=== PATIENT | female | born 1945 | race Caucasian/White ===

== ENCOUNTER → 2016-10-26 | Outpatient (CLI) | payer OTHER ==
[~2016-10-26] MED LIST: FSMUNK; LAMO150T32 PO
--- NOTE | 2016-10-26 15:30 | MAMMOGRAPHY REPORT ---
BILATERAL DIGITAL SCREENING MAMMOGRAM TOMOSYNTHESIS WITH CAD: 10/26/2016 CLINICAL HISTORY: Routine screening. TECHNIQUE: Breast tomosynthesis in addition to standard 2D mammography was performed. Current study was also evaluated with a Computer Aided Detection (CAD) system. COMPARISON: Comparison is made to exams dated: 10/07/2015 mammogram, 10/05/2014 mammogram, 08/26/2013 ma mmogram, 08/21/2012 mammogram, 08/21/2011 mammogram, and 08/15/2010 mammogram - [facility] nter. BREAST COMPOSITION: The tissue of both breasts is heterogeneously dense, which may obscure small mas ses. FINDINGS: There are diffuse scattered and grouped benign-appearing punctate microcalcifications. Dec reasing nodularity bilaterally, most likely representing fluctuating cysts. No suspicious spiculated or irregular mass, architectural distortion or cluster of new, suspicious microcalcifications is see n. IMPRESSION: ACR BI-RADS CATEGORY 1: NEGATIVE There is no mammographic evidence of malignancy. A 1 year screening mammogram is recommended. The pa tient will receive written notification of the results. Approximately 10% of breast cancers are not detected with mammography. A negative mammographic report should not delay biopsy if a clinically suggestive mass is present. Samaria Helton M.D. ay/:10/26/2016 15:18:59 Painter [employer]: Joe NORRIS(Anny)(M), [facility] letter sent: Normal 1/2 BI-RADS Code: ACR BI-RADS Category 1: Negative
== END | disposition home or self-care (01) ==
LOC: C.MAMM 13:55
PROVIDERS: ATTEND Obstetrics & Gynecology
DX: Z12.31 Encounter for screening mammogram for malignant neoplasm of breast (principal)

== ENCOUNTER → 2017-10-29 | Outpatient (CLI) | payer OTHER ==
[~2017-10-29] MED LIST changes: +LAMO150T PO; -LAMO150T32 PO
--- NOTE | 2017-10-31 07:55 | MAMMOGRAPHY REPORT ---
BILATERAL DIGITAL SCREENING MAMMOGRAM TOMOSYNTHESIS WITH CAD: 10/29/2017 CLINICAL HISTORY: Routine screening. Patient has no complaints. TECHNIQUE: The study was acquired using full field digital technology and interpreted from soft copy. Breast tomosynthesis in addition to standard 2D mammography was performed. Current study was also ev aluated with a Computer Aided Detection (CAD) system. COMPARISON: Comparison is made to exams dated: 10/26/2016 mammogram, 10/07/2015 mammogram, 10/05/2014 ma mmogram, 08/26/2013 mammogram, 08/21/2012 mammogram, and 08/21/2011 mammogram - [facility] nter. BREAST COMPOSITION: The tissue of both breasts is heterogeneously dense, which may obscure small mass es. FINDINGS: There are diffuse scattered and grouped benign-appearing punctate microcalcifications and a few benign rim calcifications in the breasts. Stable intramammary lymph node in the right upper out er quadrant posteriorly. No suspicious mass, architectural distortion or cluster of microcalcificatio ns is seen. IMPRESSION: ACR BI-RADS CATEGORY 1: NEGATIVE There is no mammographic evidence of malignancy. A 1 year screening mammogram is recommended.( 019) The patient will receive written notification of the results. Some breast cancers are not detected with mammography. A negative mammographic report should not deejay y biopsy if a clinically suggestive mass is present. Samaria Helton M.D. ay/:10/29/2017 20:48:42 Nuclear Medicine Specialist: RT Kb(Anny)(M), [facility] letter sent: Normal 1/2 BI-RADS Code: ACR BI-RADS Category 1: Negative
== END | disposition home or self-care (01) ==
LOC: C.MAMM 09:40
PROVIDERS: ATTEND Family Medicine
DX: Z12.31 Encounter for screening mammogram for malignant neoplasm of breast (principal)

== ENCOUNTER 2021-06-19 10:28 | Inpatient (IN) ==
[2021-06-19] MEDS ORDERED: METOPROLOL TARTRATE 50 MG TAB PO STA (11:13)
[2021-06-19] MEDS ORDERED: SODIUM CHLORIDE 0.9% 1000ML 500 ML IV ONE (11:13)
[2021-06-19] MEDS ORDERED: METOPROLOL TARTRATE 1 MG/ML VIAL IV STA (11:13)
--- NOTE | 2021-06-19 11:21 | Emergency Department Note ---
Impression & Plan SOB (shortness of breath), Atrial flutter with rapid ventricular response, Palpitations, CHF (congestive heart failure) ED Provider Note NAME: DARON CAMPOS AGE: 76 SEX: F : 1945 ARRIVES VIA: Walk-In INFORMANT: [Patient] ED PROVIDER(S): [Adalid Cornell MD] CHIEF COMPLAINT: Illness HISTORY OF PRESENT ILLNESS: The patient is a 76-year-old female presents to the ED with some shortness of breath and what she thought may be some nasal congestion. She has noticed symptoms for about a week. No cough. No fever, nausea, vomiting, chest or abdominal pain. She has no diagnosed heart or lung disease. Patient went to [facility] today and was referred to the ER as she was tachycardic. Of note, the patient has been vaccinated for COVID-19 and influenza. REVIEW OF SYSTEMS: See HPI for pertinent positives and negatives. A total of ten systems were reviewed and were otherwise negative. PMHx/PSHx: See Below SOCIAL HISTORY: See Below. PHYSICAL EXAM: GENERAL: Patient is in no acute distress. HEENT: No acute trauma, normocephalic atraumatic, mucous membranes moist, no nasal congestion, no scleral icterus. NECK: No stridor, no adenopathy, no meningismus, trachea is midline. LUNGS: Clear to auscultation bilaterally, no wheeze, no rhonchi, breath sounds equal. HEART: Subtle systolic murmur, irregular rhythm, mildly tachycardic. ABDOMEN: Soft, nontender, bowel sounds positive, no hernias, no peritonitis. EXTREMITIES: No cyanosis or edema, full range of motion of all the joints without pain or difficulty, no signs for acute trauma. NEUROLOGIC: Oriented x 3, no acute motor or sensory deficits, no focal weakness. SKIN: No rash, no jaundice, no diaphoresis. DIFFERENTIAL DIAGNOSIS: Infection, dehydration, metabolic abnormality, hypo/hyperglycemia, electrolyte disturbance, anemia, SVT, A. fib or A flutter, V. tach, hyperthyroidism, hypoxia, cardiac sources, as well as other pathologies. EMERGENCY DEPARTMENT COURSE/PROCEDURES: ECG: Indication was shortness of breath and tachycardia. The ECG shows atrial flutter with a variable AV block. The rate is 106. There is some nonspecific ST change noted diffusely. No ST elevation. No PVCs. The QTc is 470 Continuous Cardiac Monitoring: An order was placed for continuous cardiac monitoring. The monitor shows a rate of 118 with atrial flutter. Critical Care Note: I have personally spent 42 minutes of critical care time in the direct management of this patient. This includes bedside care, interpretation of diagnostic studies, and testing, discussion with consultants, patient, and family members, and other required patient management activities. This 42 minutes is in excess of all separately billable procedures. MEDICAL DECISION MAKING: There is no leukocytosis or concerning anemia. There is a normal platelet count. No significant electrolyte abnormality or kidney failure. No concerning liver enzyme elevation. The patient appeared to be in a euthyroid state. ECG shows atrial flutter with a variable AV block. No obvious acute ischemia. Cardiac enzyme testing x1 was not consistent with acute cardiac injury. Chest x-ray shows some CHF. BNP was elevated consistent with fluid overload. Urinalysis did not show infection. Covid testing returned negative. The patient presents with some palpitations and shortness of breath. She was found to be in a rapid atrial flutter with CHF. 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 She was given a 500 cc saline bolus. She received IV Lopressor as well as oral metoprolol. The patient is in need of a hospital stay. I spoke with her about her findings. I spoke with case management, the on-call hospitalist was consulted. The Lopressor that was given in the ED has slowed her heart rate. Past Med/Surg History Medical History History of seizures Surgical History History of tonsillectomy and adenoidectomy Family History Mother Multiple myeloma Father Kidney disease Social History Smoking Status: Former smoker Cigarettes Per Day: 2 per day; Do You Dip or Chew Tobacco: No; Hx Alcohol Use: Yes Alcohol Intake Frequency: 2-4 x/Month Hx Substance Use: No Preferred Language: Kinyarwanda Communication Ability: Effective Cable Testers Helper Required: No Beliefs That Will Affect Care: None Current Living Situation: Spouse Other Information That Helps Us Care for You: No Feels Safe at Home: Yes Safety Concerns: Feels Safe At This Time Assistive Devices: Contacts and Glasses Allergies Allergies Allergy/AdvReac Type Severity Reaction Status Date / Time No Known Allergies Allergy Mild Unverified 04/10/08 16:03 Home Meds Home Medications Medication Instructions Recorded Confirmed cholecalciferol (vitamin D3) 25 25 mcg PO QAM 06/19/21 06/19/21 mcg (1,000 unit) tablet (Vitamin D3) lamotrigine 150 mg tablet 150 mg PO BID 06/19/21 06/19/21 multivitamin 1 tab PO QAM 06/19/21 06/19/21 Results & Data (ED) Vital Signs Vital Signs - 24 hr 06/19/21 10:46 06/19/21 11:30 06/19/21 11:38 Temperature 36.4 C L Temperature Source Temporal Artery Scan Pulse Rate 118 H 110 H Pulse Rate [Apical] 107 H Pulse Rhythm Irregular Pulse Rhythm [Apical] Irregular Respiratory Rate 20 20 20 Respiratory Effort / Characteristics Non-Labored Spontaneous Non-Labored Spontaneous Respiratory Depth Normal Normal Respiratory Pattern Regular Blood Pressure 117/67 Blood Pressure [Left Arm] 150/106 H Blood Pressure Mean 83 Blood Pressure Mean [Left Arm] 120 Blood Pressure Position [Left Arm] Semi-fowlers Pulse Oximetry 98 98 98 Oxygen Delivery Method Room Air Room Air Room Air Sepsis Recent Fever Within 48 Hours No Sepsis New/Unexplained Change in Mental Status No Sepsis Action Taken by Nursing No Action Required 06/19/21 11:53 Temperature Temperature Source Pulse Rate 118 H Pulse Rate [Apical] Pulse Rhythm Pulse Rhythm [Apical] Respiratory Rate Respiratory Effort / Characteristics Respiratory Depth Respiratory Pattern Blood Pressure 142/103 H Blood Pressure [Left Arm] Blood Pressure Mean Blood Pressure Mean [Left Arm] Blood Pressure Position [Left Arm] Pulse Oximetry Oxygen Delivery Method Sepsis Recent Fever Within 48 Hours Sepsis New/Unexplained Change in Mental Status Sepsis Action Taken by [facility] Medications Current Medication List: was personally reviewed by me Laboratory Data Attestation: I reviewed the patient's lab results. Result diagrams: 06/19/21 11:38 06/19/21 11:38 Lab Results 06/19/21 06/19/21 06/19/21 Range/Units 11:38 11:38 11:38 WBC 8.52 (4.8-10.8) K/uL RBC 4.89 (4.2-5.4) M/uL Hgb 13.7 (12.0-16.0) g/dL Hct 40.9 (37-47) % MCV 83.6 (80-100) fL MCH 28.0 (25-34) pg MCHC 33.5 (32-36) g/dL RDW Std Deviation 41.5 (36.4-46.3) fL RDW Coeff of Julian 13.7 (11.5-14.5) % Plt Count 233 (130-400) K/uL MPV 10.5 H (7.4-10.4) fL Immature Gran % (Auto) 0.2 % Neut % (Auto) 73.8 % Lymph % (Auto) 14.4 % Rhea % (Auto) 8.3 % Eos % (Auto) 3.1 % Baso % (Auto) 0.2 % Neut # (Auto) 6.28 (1.4-6.5) K/uL Lymph # (Auto) 1.23 (1.2-3.4) K/uL Rhea # (Auto) 0.71 H (0.11-0.59) K/uL Eos # (Auto) 0.26 (0-0.5) K/uL Baso # (Auto) 0.02 (0-0.2) K/uL Immature Gran # (Auto) 0.02 (0.00-0.02) K/uL Sodium 140 (136-145) mmol/L Potassium 4.2 (3.5-5.1) mmol/L Chloride 107 (98-107) mmol/L Carbon Dioxide 23 (21-32) mmol/L Anion Gap 10 (3-11) BUN 15 (6-23) mg/dl Creatinine 1.11 (0.6-1.2) mg/dl Est Cr Clr Drug Dosing 36.8 ml/min Est GFR ( Amer) 56.7 ml/min Est GFR (Non-Af Amer) 48.9 ml/min BUN/Creatinine Ratio 13.5 (10-20) Glucose 88 (70-99(Fasting)) mg/dl Calcium 9.4 (8.5-10.1) mg/dl Magnesium 2.2 (1.7-2.4) mg/dl Total Bilirubin 0.9 (0.2-1.0) mg/dl AST 20 (13-39) U/L ALT 17 (7-52) U/L Alkaline Phosphatase 79 (34-104) U/L Troponin I 0.03 (0-0.04) ng/ml B-Natriuretic Peptide (0-100) pg/ml Total Protein 7.2 (6.0-8.3) gm/dl Albumin 4.5 (3.4-5.0) gm/dl Globulin 2.7 (2.5-4.0) gm/dl Albumin/Globulin Ratio 1.7 (0.9-2) Procalcitonin (0-0.5) ng/ml TSH 1.472 (0.300-4.500) uIu/ml SARS-CoV-2, RNA, NAAT (NEGATIVE) 06/19/21 06/19/21 06/19/21 Range/Units 11:38 11:56 13:15 WBC (4.8-10.8) K/uL RBC (4.2-5.4) M/uL Hgb (12.0-16.0) g/dL Hct (37-47) % MCV (80-100) fL MCH (25-34) pg MCHC (32-36) g/dL RDW Std Deviation (36.4-46.3) fL RDW Coeff of Julian (11.5-14.5) % Plt Count (130-400) K/uL MPV (7.4-10.4) fL Immature Gran % (Auto) % Neut % (Auto) % Lymph % (Auto) % Rhea % (Auto) % Eos % (Auto) % Baso % (Auto) % Neut # (Auto) (1.4-6.5) K/uL Lymph # (Auto) (1.2-3.4) K/uL Rhea # (Auto) (0.11-0.59) K/uL Eos # (Auto) (0-0.5) K/uL Baso # (Auto) (0-0.2) K/uL Immature Gran # (Auto) (0.00-0.02) K/uL Sodium (136-145) mmol/L Potassium (3.5-5.1) mmol/L Chloride (98-107) mmol/L Carbon Dioxide (21-32) mmol/L Anion Gap (3-11) BUN (6-23) mg/dl Creatinine (0.6-1.2) mg/dl Est Cr Clr Drug Dosing ml/min Est GFR ( Amer) ml/min Est GFR (Non-Af Amer) ml/min BUN/Creatinine Ratio (10-20) Glucose (70-99(Fasting)) mg/dl Calcium (8.5-10.1) mg/dl Magnesium (1.7-2.4) mg/dl Total Bilirubin (0.2-1.0) mg/dl AST (13-39) U/L ALT (7-52) U/L Alkaline Phosphatase (34-104) U/L Troponin I (0-0.04) ng/ml B-Natriuretic Peptide 394 H (0-100) pg/ml Total Protein (6.0-8.3) gm/dl Albumin (3.4-5.0) gm/dl Globulin (2.5-4.0) gm/dl Albumin/Globulin Ratio (0.9-2) Procalcitonin < 0.05 (0-0.5) ng/ml TSH (0.300-4.500) uIu/ml SARS-CoV-2, RNA, NAAT NEGATIVE (NEGATIVE) Administered Medications Heparin Sodium/Dextrose (Heparin Sodium/Dextrose) 25,000 units in 500 mls @ 20 mls/hr IV .Q24H [facility]; Protocol Stop: 07/19/21 14:14 Last Admin: 06/19/21 15:52 Dose: 1,000 units/hr, 20 mls/hr Documented by: [id number] Cosigned by: [id number] Lamotrigine (Lamotrigine 100 Mg Tab) 150 mg PO BID [facility] Stop: 07/19/21 20:59 Last Admin: 06/19/21 17:51 Dose: Not Given Documented by: [id number] Metoprolol Tartrate (Metoprolol Tartrate 25 Mg Tab) 12.5 mg PO Q6 [facility] Stop: 07/19/21 17:59 Last Admin: 06/19/21 17:47 Dose: 12.5 mg Documented by: [id number] Discontinued Medications Furosemide (Furosemide Inj 20 Mg/2 Ml Vial) 20 mg IV ONE ONE Stop: 06/19/21 13:52 Last Admin: 06/19/21 14:09 Dose: 20 mg Documented by: [id number] Heparin Sodium (Porcine) (Heparin Sod (Porcine) 1000 Unit/Ml) 4,000 units IV ONE ONE Stop: 06/19/21 15:01 Last Admin: 06/19/21 15:55 Dose: 4,000 units Documented by: [id number] Cosigned by: [id number] Sodium Chloride (Nss 1000ml) 500 mls @ 999 mls/hr IV .Q31M ONE Stop: 06/19/21 11:43 Last Infusion: 06/19/21 12:21 Dose: 0 mls/hr Documented by: [id number] Admin: 06/19/21 11:47 Dose: 999 mls/hr Documented by: [id number] Metoprolol Tartrate (Metoprolol Tartrate 1 Mg/Ml Vial) 5 mg IV NOW STA; Pro tocol Stop: 06/19/21 11:14 Last Admin: 06/19/21 11:53 Dose: 5 mg Documented by: [id number] Metoprolol Tartrate (Metoprolol Tartrate 50 Mg Tab) 25 mg PO NOW STA Stop: 06/19/21 11:14 Last Admin: 06/19/21 11:54 Dose: 25 mg Documented by: [id number] Imaging Data Radiologist's Impression: Chest X-Ray 06/19/21 11:15 XR chest 1V portable HISTORY: Shortness of breath. weakness COMPARISON: None. FINDINGS: No pneumothorax. The heart is mildly enlarged. There are small bilateral pleural effusions. There is diffuse interstitial/vascular thickening consistent with mild pulmonary edema. There are patchy bibasilar airspace opacities. IMPRESSION: 1. Cardiomegaly, small bilateral pleural effusions, and mild interstitial pulmonary edema. 2. Patchy bibasilar densities likely represent atelectasis from the pleural effusions. A pneumonia could also have a similar appearance in the appropriate clinical setting. ACT 112: Negative or not required by law. Electronically signed by: Lázaro Loving M.D. 06/19/2021 11:34 AM Discharge Plan Visit Data Chief Complaint: Illness Stated Complaint: DR REFERRED, RAPID HEART RATE ED Provider: Adalid Cornell Discharge Problem: SOB (shortness of breath), Atrial flutter with rapid ventricular response, Palpitations, CHF (congestive heart failure) Patient Disposition: Admitted As Inpatient Condition: Fair Discharge Instructions Interventions: ED Discharge Assessment Last Done: 06/19/21 14:02
--- NOTE | 2021-06-19 11:35 | XRay Report ---
XR chest 1V portable HISTORY: Shortness of breath. weakness COMPARISON: None. FINDINGS: No pneumothorax. The heart is mildly enlarged. There are small bilateral pleural effusions. There is diffuse interstitial/vascular thickening consistent with mild pulmonary edema. There are pa tchy bibasilar airspace opacities. IMPRESSION: 1. Cardiomegaly, small bilateral pleural effusions, and mild interstitial pulmonary edema. 2. Patchy bibasilar densities likely represent atelectasis from the pleural effusions. A pneumonia co uld also have a similar appearance in the appropriate clinical setting. ACT 112: Negative or not required by law. Electronically signed by: Lázaro Loving M.D. 06/19/2021 11:34 AM
[2021-06-19 11:52] LABS: Basophils # (auto) 0.02 K/uL (0-0.2); Basophils % (auto) 0.2 %; Eosinophils # (auto) 0.26 K/uL (0-0.5); Eosinophils % (auto) 3.1 %; Hematocrit (blood only) 40.9 % (37-47); Hemoglobin 13.7 g/dL (12.0-16.0); Immature Granulocytes # (auto) 0.02 K/uL (0.00-0.02); Immature Granulocytes % (auto) 0.2 %; Lymphocytes # (auto) 1.23 K/uL (1.2-3.4); Lymphocytes % (auto) 14.4 %; Mean Corpuscular Hgb Conc 33.5 g/dL (32-36); Mean Corpuscular Volume 83.6 fL (80-100); Mean Platelet Volume 10.5 fL (7.4-10.4); Monocytes # (auto) 0.71 K/uL (0.11-0.59); Monocytes % (auto) 8.3 %; Neutrophils # (auto) 6.28 K/uL (1.4-6.5); Neutrophils % (auto) 73.8 %; Platelet Count 233 K/uL (130-400); RDW Coefficient of Variation 13.7 % (11.5-14.5); RDW Standard Deviation 41.5 fL (36.4-46.3); Red Blood Count 4.89 M/uL (4.2-5.4); White Blood Count 8.52 K/uL (4.8-10.8)
[2021-06-19 12:18] LABS: Albumin Globulin Ratio 1.7 (0.9-2); Albumin Level 4.5 gm/dl (3.4-5.0); BUN Creatinine Ratio 13.5 (10-20); Bilirubin,Total 0.9 mg/dl (0.2-1.0); Calcium 9.4 mg/dl (8.5-10.1); Creatinine Clr Calc Pharmacy 36.8 ml/min; Est GFR (African American) 56.7 ml/min; Est GFR (Non-African American) 48.9 ml/min; Globulin 2.7 gm/dl (2.5-4.0); Magnesium 2.2 mg/dl (1.7-2.4); Potassium 4.2 mmol/L (3.5-5.1); Total Protein 7.2 gm/dl (6.0-8.3)
[2021-06-19 12:20] LABS: Troponin I 0.03 ng/ml (0-0.04)
[2021-06-19] MEDS ORDERED: FUROSEMIDE INJ 20 MG/2 ML VIAL IV ONE (13:51)
[2021-06-19] MEDS ORDERED: Heparin IV Adult Wt-Based Standard WITH Bolus Protocol IV SCH (14:03)
--- NOTE | 2021-06-19 14:10 | Cardiology Consultation ---
Date of Consultation June 19, 2021 Assessment & Plan (1) Atrial fibrillation with RVR: (2) (HFpEF) heart failure with preserved ejection fraction: The patient will have a resting echocardiogram. She will be ruled out for myocardial infarction by cardiac markers. She should have a TSH completed. I would continue the Lopressor for heart rate control. She should be anticoagulated. History of Present Illness History of Present Illness This is a 76-year-old female with minimal past medical history and no prior history of heart disease however, as a child she was noted to have a heart murmur and she has a sister that had rheumatic fever. She was in her usual state of health until last week she had which she thought was a cold and congestion with some mild shortness of breath and dyspnea. She went to see her primary care physician today and was noted to be in newly discovered atrial fibrillation with RVR. She was sent to the emergency department where she was given 1 dose of IV Lopressor and some Lasix. Her heart rates have improved and she is feeling comfortable. She has had no recent activity related chest pain. No dizziness or lightheadedness. She denies orthopnea. Allergies Allergy/AdvReac Type Severity Reaction Status Date / Time No Known Allergies Allergy Mild Unverified 04/10/08 16:03 Home Medications Medication Instructions Recorded Confirmed Type cholecalciferol (vitamin D3) 25 25 mcg PO QAM 06/19/21 06/19/21 History mcg (1,000 unit) tablet (Vitamin D3) lamotrigine 150 mg tablet 150 mg PO BID 06/19/21 06/19/21 History multivitamin 1 tab PO QAM 06/19/21 06/19/21 History Patient History Medical History History of seizures Surgical History History of tonsillectomy and adenoidectomy Family History Mother Multiple myeloma Father Kidney disease Social History Smoking Status: Former smoker Cigarettes Per Day: 2 per day; Do You Dip or Chew Tobacco: No; Hx Alcohol Use: Yes Alcohol Intake Frequency: 2-4 x/Month Hx Substance Use: No Preferred Language: Pashto Communication Ability: Effective Supervisor Poultry Processing Required: No Beliefs That Will Affect Care: None Current Living Situation: Spouse Other Information That Helps Us Care for You: No Feels Safe at Home: Yes Safety Concerns: Feels Safe At This Time Assistive Devices: Contacts and Glasses Review of Systems Review of Systems: Review of Systems: See HPI for pertinent positives. All other 10 point review of systems are negative. Physical Exam Physical Exam: General: no acute distress and stated age Head: normocephalic, no masses, lesions, tenderness or abnormalities Eyes: conjunctiva are pink and non-injected, sclera clear Neck: supple, no adenopathy, no bruits, normal jugular venous pulse, no hepatojugular reflux Chest: normal shape and normal respiratory effort Lungs: clear to auscultation and percussion Cardiac Exam: - irregular rate & rhythm, no murmurs gallops or rubs - normal S1, normal S2 Pulses: 2(+) throughout Abdomen: abdomen soft, non-tender, no abnormal masses and no hepatosplenomegaly Musculoskeletal: no gait disturbance, no joint inflammation, no deforming arthritis Extremities: no edema and no cyanosis Neuro: grossly normal exam Results & Data ([facility]) Vital Signs (Past 12 Hours) Vital Signs Temp Pulse Pulse Resp BP BP Pulse Ox 06/19/21 11:53 118 H 142/103 H 06/19/21 11:38 110 H 20 98 06/19/21 11:30 107 H 20 150/106 H 98 06/19/21 10:46 36.4 C L 118 H 20 117/67 98 Laboratory Results Laboratory Results - last 24 hr 06/19/21 06/19/21 06/19/21 11:38 11:38 11:38 WBC 8.52 RBC 4.89 Hgb 13.7 Hct 40.9 MCV 83.6 MCH 28.0 MCHC 33.5 RDW Std Deviation 41.5 RDW Coeff of Julian 13.7 Plt Count 233 MPV 10.5 H Immature Gran % (Auto) 0.2 Neut % (Auto) 73.8 Lymph % (Auto) 14.4 Nelson % (Auto) 8.3 Eos % (Auto) 3.1 Baso % (Auto) 0.2 Neut # (Auto) 6.28 Lymph # (Auto) 1.23 Nelson # (Auto) 0.71 H Eos # (Auto) 0.26 Baso # (Auto) 0.02 Immature Gran # (Auto) 0.02 Sodium 140 Potassium 4.2 Chloride 107 Carbon Dioxide 23 Anion Gap 10 BUN 15 Creatinine 1.11 Est Cr Clr Drug Dosing 36.8 Est GFR ( Amer) 56.7 Est GFR (Non-Af Amer) 48.9 BUN/Creatinine Ratio 13.5 Glucose 88 Calcium 9.4 Magnesium 2.2 Total Bilirubin 0.9 AST 20 ALT 17 Alkaline Phosphatase 79 Troponin I 0.03 B-Natriuretic Peptide Total Protein 7.2 Albumin 4.5 Globulin 2.7 Albumin/Globulin Ratio 1.7 TSH 1.472 SARS-CoV-2, RNA, NAAT 06/19/21 06/19/21 11:56 13:15 WBC RBC Hgb Hct MCV MCH MCHC RDW Std Deviation RDW Coeff of Julian Plt Count MPV Immature Gran % (Auto) Neut % (Auto) Lymph % (Auto) Nelson % (Auto) Eos % (Auto) Baso % (Auto) Neut # (Auto) Lymph # (Auto) Nelson # (Auto) Eos # (Auto) Baso # (Auto) Immature Gran # (Auto) Sodium Potassium Chloride Carbon Dioxide Anion Gap BUN Creatinine Est Cr Clr Drug Dosing Est GFR ( Amer) Est GFR (Non-Af Amer) BUN/Creatinine Ratio Glucose Calcium Magnesium Total Bilirubin AST ALT Alkaline Phosphatase Troponin I B-Natriuretic Peptide 394 H Total Protein Albumin Globulin Albumin/Globulin Ratio TSH SARS-CoV-2, RNA, NAAT NEGATIVE Medications Administered Current Inpatient Medications Heparin Sodium (Porcine) (Heparin Sod (Porcine) 1000 Unit/Ml) 1 units IV NOW ONE Stop: 06/19/21 14:15 Heparin Sodium/Dextrose (Heparin Iv Adult Wt-Based Standard With Bolus Protocol) 1 ea IV Q15M [facility]; Protocol Stop: 07/19/21 14:02 Heparin Sodium/Dextrose (Heparin Sodium/Dextrose) 25,000 units in 500 mls @ 0.02 mls/hr IV .Q24H [facility]; Protocol Stop: 07/19/21 14:14
--- NOTE | 2021-06-19 14:26 | History & Physical Report ---
Date of Service June 19, 2021 Assessment & Plan (1) Atrial fibrillation with RVR: (2) (HFpEF) heart failure with preserved ejection fraction: Plan: Admit to telemetry Patient referred to ED by [facility] for evaluation of shortness of breath and tachycardia. In the ED, initial EKG shows atrial flutter with variable AV block with rate 106 Received metoprolol 5 mg IV and metoprolol tartrate 25 mg PO with improvement in heart rate CXR shows mild pulmonary edema, small bilateral pleural effusions. Will check procalcitonin to r/o pneumonia. Noted patient is afebrile, no leukocytosis. Continue with metoprolol tartrate 12.5 mg PO q6h [id number] score 2 (age, female) -start IV heparin, likely transition to Eliquis Lasix 20 mg IV x 1 Echo Serial troponin Cardiology consult, case discussed with Dr. Dickey (3) History of seizures: Plan: Continue Lamictal (4) DVT prophylaxis: Plan: On IV heparin History of Present Illness Chief Complaint: Shortness of breath Primary Care Provider: Saeid Pena MD 76-year-old female with PMH CKD stage III, history of seizures, and other problems listed below who was referred to the ED from [facility] for evaluation of tachycardia. Patient reports that over the past 1 week, she has had sinus congestion, cough, exertional shortness of breath. Cough has been productive for yellow/green sputum at times. She denies fevers and chills. No chest pain or palpitations. Denies lightheadedness, dizziness, diaphoresis, syncopal events. No abdominal pain, nausea, vomiting, diarrhea. Denies urinary symptoms. Patient was initially seen at [facility] and found to be tachycardic, was referred to the ED for further evaluation. In the ED, patient was found to be in atrial flutter with RVR. She received metoprolol 5 mg IV and the Toprol tartrate 25 mg PO with improvement in heart rate. Labs are unremarkable. CXR shows mild pulmonary edema. Allergies Allergy/AdvReac Type Severity Reaction Status Date / Time No Known Allergies Allergy Mild Unverified 04/10/08 16:03 Home Medications Medication Instructions Recorded Confirmed Type cholecalciferol (vitamin D3) 25 25 mcg PO QAM 06/19/21 06/19/21 History mcg (1,000 unit) tablet (Vitamin D3) lamotrigine 150 mg tablet 150 mg PO BID 06/19/21 06/19/21 History multivitamin 1 tab PO QAM 06/19/21 06/19/21 History Past Med/Surg History Medical History History of seizures Surgical History History of tonsillectomy and adenoidectomy Family History Mother Multiple myeloma Father Kidney disease Social History Smoking Status: Former smoker Cigarettes Per Day: 2 per day; Do You Dip or Chew Tobacco: No; Hx Alcohol Use: Yes Alcohol Intake Frequency: 2-4 x/Month Hx Substance Use: No Preferred Language: Syriac Communication Ability: Effective Cage Clerk Required: No Beliefs That Will Affect Care: None Current Living Situation: Spouse Other Information That Helps Us Care for You: No Feels Safe at Home: Yes Safety Concerns: Feels Safe At This Time Assistive Devices: Contacts and Glasses Review of Systems Review of Systems: ROS per HPI, all other systems reviewed and negative Physical Exam Constitutional: WD/WN, vitals as above Eyes: PERRL, conjunctivae normal, anicteric sclerae ENMT: external ear and nose normal, oropharynx normal Respiratory: normal respiratory effort; no respiratory distress Auscultation: + crackles (Left base) Cardiovascular: Rate/Rhythm: regular rate and + irregularly irregular Vessels: normal peripheral pulses Extremities: no edema Gastrointestinal (Abdomen): normal bowel sounds, soft, nontender, no hepatosplenomegaly Musculoskeletal: no cyanosis or clubbing, extremities motor strength 5/5 Skin: no rashes, warm and dry Neurologic: PERRL, EOMI, accommodation nl, no face palsy, no dysarthria Psychiatric: A+Ox3, euthymic affect Results & Data Results & Data ([facility]) Vital Signs (Past 12 Hours) Vital Signs Temp Pulse Pulse Resp BP BP Pulse Ox 06/19/21 14:00 82 18 135/90 97 06/19/21 11:53 118 H 142/103 H 06/19/21 11:38 110 H 20 98 06/19/21 11:30 107 H 20 150/106 H 98 06/19/21 10:46 36.4 C L 118 H 20 117/67 98 Laboratory Results Short CBC 06/19/21 Range/Units 11:38 WBC 8.52 (4.8-10.8) K/uL Hgb 13.7 (12.0-16.0) g/dL Hct 40.9 (37-47) % Plt Count 233 (130-400) K/uL BMP 06/19/21 11:38 Sodium 140 Potassium 4.2 Chloride 107 Carbon Dioxide 23 BUN 15 Creatinine 1.11 Glucose 88 Calcium 9.4 Cardiac Enzymes 06/19/21 Range/Units 11:38 Troponin I 0.03 (0-0.04) ng/ml Liver Function 06/19/21 Range/Units 11:38 Total Bilirubin 0.9 (0.2-1.0) mg/dl AST 20 (13-39) U/L ALT 17 (7-52) U/L Alkaline Phosphatase 79 (34-104) U/L Albumin 4.5 (3.4-5.0) gm/dl Diagnostic Findings Chest X-Ray 06/19/21 11:15 XR chest 1V portable HISTORY: Shortness of breath. weakness COMPARISON: None. FINDINGS: No pneumothorax. The heart is mildly enlarged. There are small bilateral pleural effusions. There is diffuse interstitial/vascular thickening consistent with mild pulmonary edema. There are patchy bibasilar airspace opacities. IMPRESSION: 1. Cardiomegaly, small bilateral pleural effusions, and mild interstitial pulmonary edema. 2. Patchy bibasilar densities likely represent atelectasis from the pleural effusions. A pneumonia could also have a similar appearance in the appropriate clinical setting. ACT 112: Negative or not required by law. Electronically signed by: Lázaro Loving M.D. 06/19/2021 11:34 AM Code Status & VTE Plan Code Status Patient is a full code as per my discussion with her. Patient states that her , Hernan, would make decisions for her on her behalf if she were unable to. VTE Prophylaxis Plan VTE Prophylaxis will be ordered: No Supervising Physician Co-Signing Physician Notes Patient is a 76-year-old female with history of CKD stage III, seizures and no other significant past medical history presents with history of ongoing dyspnea on exertion which has been gradually worsening for the past 1 week. Patient states having flulike symptoms for the last few days. She feels chest is congested but denies any chest pain, palpitations, dizziness, nausea, vomiting, abdominal pain. She also denies any orthopnea, PND, leg edema. She was found to be in A. fib RVR while in ED. Please review HPI for complete details of presentation. Blood work fairly within normal range. Initial troponin, procalcitonin levels negative. BNP elevated at 394. TSH within normal limits. Chest x-ray showed findings suggestive of mild interstitial pulmonary edema with small bilateral pleural effusions. On exam patient is moderately built and nourished, no apparent distress, normocephalic atraumatic, EOMI, irregularly irregular rhythm, no murmur, no pedal edema, normal breath sounds, basilar Rales, no distress, abdomen soft, nontender, normal bowels, alert, awake, oriented, grossly no focal deficits. A. fib RVR. Acute Pulmonary edema likely due to afib rvr. R/O CHF. Agree with starting on metoprolol. IV Lopressor as needed. IV heparin for anticoagulation. N.p.o. after midnight. Trend cardiac enzymes and check resting echo. Appreciate cardiology input. Monitor volume status. IV Lasix as needed. I personally reviewed the record. Patient is interviewed and examined at bedside. Patient's care is coordinated with Amie Drummond SET PAINTER. Please refer to the documentation above for details of patient's presentation and for discussion of other issues.
[2021-06-19] MEDS ORDERED: ACETAMINOPHEN 325 MG TAB PO PRN (14:43)
[2021-06-19] MEDS ORDERED: HEPARIN SOD (PORCINE) 1000 UNIT/ML IV ONE (15:00)
[2021-06-19] MEDS: HEPARIN SODIUM/DEXTROSE 25,000 UNITS/500 ML BAG IV SCH (15:52)
[2021-06-19] MEDS ORDERED: METOPROLOL TARTRATE 1 MG/ML VIAL IV PRN (15:58)
[2021-06-19 17:27] LABS: Appearance Urine Clear (Clear); Bilirubin Urine Negative (Negative); Blood Urine Negative (Negative); Color Urine Yellow; Glucose Urine UA Negative (Negative); Ketones Urine Negative (Negative); Leukocyte Esterase Urine Negative (Negative); Nitrite Urine Negative (Negative); Protein Urine Negative (Negative); Specific Gravity Urine 1.006 (1.000-1.030); Urobilinogen Urine Negative (Negative); pH Urine 6.5 (4.5-7.5)
[2021-06-19] MEDS: METOPROLOL TARTRATE 25 MG TAB PO SCH (17:47)
[2021-06-19] MEDS: lamoTRIgine 100 MG TAB PO SCH (17:51)
--- NOTE | 2021-06-19 21:34 | Electrocardiogram Report ---
Test Reason : Blood Pressure : / mmHG Vent. Rate : 106 BPM Atrial Rate : 326 BPM P-R Int : 000 ms QRS Dur : 084 ms QT Int : 354 ms P-R-T Axes : 000 069 -49 degrees QTc Int : 470 ms Atrial fibrillation with rapid ventricular response Nonspecific ST and T wave abnormality Abnormal ECG When compared with ECG of 28-FEB-2002 01:18, Atrial fibrillation has replaced Sinus rhythm T wave inversion now evident in Inferolateral leads Confirmed by Louis Kapadia ([id number]) on 06/19/2021 9:34:03 PM Referred By: Confirmed By:Louis Kapadia
[2021-06-19 23:45] LABS: Partial Thromboplastin Ratio 2.2
[2021-06-19 23:56] LABS: Partial Thromboplastin Time 61.7 Seconds (21.0-31.0)
[2021-06-20] MEDS: METOPROLOL TARTRATE 25 MG TAB PO SCH ×5 (00:01→23:22)
[2021-06-20 07:00] LABS: Hematocrit (blood only) 38.2 % (37-47); Mean Corpuscular Hemoglobin 28.2 pg (25-34); Mean Corpuscular Volume 82.9 fL (80-100); Mean Platelet Volume 10.5 fL (7.4-10.4); Platelet Count 234 K/uL (130-400); RDW Coefficient of Variation 13.5 % (11.5-14.5); RDW Standard Deviation 40.9 fL (36.4-46.3); Red Blood Count 4.61 M/uL (4.2-5.4); White Blood Count 7.36 K/uL (4.8-10.8)
[2021-06-20 07:22] LABS: BUN Creatinine Ratio 12.9 (10-20); Calcium 9.6 mg/dl (8.5-10.1); Creatinine Clr Calc Pharmacy 40.4 ml/min; Est GFR (African American) 63.5 ml/min; Est GFR (Non-African American) 54.8 ml/min; Potassium 4.1 mmol/L (3.5-5.1)
[2021-06-20 07:26] LABS: Partial Thromboplastin Ratio 2.2; Partial Thromboplastin Time 59.7 Seconds (21.0-31.0)
[2021-06-20] MEDS: lamoTRIgine 100 MG TAB PO SCH ×2 (08:07→20:50)
[2021-06-20] MEDS: POTASSIUM CHLORIDE CRTAB 20 MEQ TABCR PO SCH ×2 (11:23→20:51)
[2021-06-20] MEDS: FUROSEMIDE INJ 20 MG/2 ML VIAL IV SCH ×2 (11:24→20:50)
--- NOTE | 2021-06-20 11:30 | Cardiology Progress Note ---
Date of Service June 20, 2021 Assessment & Plan (1) Atrial fibrillation with RVR: (2) (HFpEF) heart failure with preserved ejection fraction: (3) Mitral regurgitation and mitral stenosis: Plan: After reviewing the patient's echocardiogram. Her mitral valve has the appearance of having previous rheumatic fever. She has mild mitral stenosis and moderately severe mitral regurgitation with dilatation of the left atrium indicating valvular heart disease for a long time. I had a long discussion with her this morning. She did have a history of a heart murmur as a child and actually her sister had rheumatic fever. She has never been told that she had rheumatic fever nor was she sick at any point that would suggest that she had rheumatic heart disease. She was told by her OB that she might have mitral stenosis when she delivered one of her children decades ago. In any case, I am going to start her on amiodarone because I think this is the best drug to possibly get her back into sinus rhythm. Once we have her loaded with amiodarone we will do a DIANA to evaluate the mitral valve further and exclude contraindication to cardioversion. I would continue the metoprolol and heparin. I have added Lasix 20 mg IV twice daily along with potassium. Her admission chest x-ray suggested some pulmonary edema. I have also started her on lisinopril 5 mg daily. Admission and Anticipated Discharge Date Admission Date: June 19, 2021 Subjective The patient had an uneventful night. No new complaints today. She is in a rate controlled atrial fibrillation. Review of Systems Review of Systems: Review of Systems: See HPI for pertinent positives. All other 10 point review of systems are negative. Physical Exam Physical Exam: General: no acute distress and stated age Head: normocephalic, no masses, lesions, tenderness or abnormalities Eyes: conjunctiva are pink and non-injected, sclera clear Neck: supple, no adenopathy, no bruits, normal jugular venous pulse, no hepatojugular reflux Chest: normal shape and normal respiratory effort Lungs: clear to auscultation and percussion Cardiac Exam: - irregular rate & rhythm, no murmurs gallops or rubs - normal S1, normal S2 Pulses: 2(+) throughout Abdomen: abdomen soft, non-tender, no abnormal masses and no hepatosplenomegaly Musculoskeletal: no gait disturbance, no joint inflammation, no deforming arthritis Extremities: no edema and no cyanosis Neuro: grossly normal exam Results & Data ([facility]) Vital Signs (Past 12 Hours) Vital Signs Temp Pulse Pulse Resp BP Pulse Ox 06/20/21 11:16 106 H 110/80 06/20/21 07:31 36.6 C 98 H 18 105/90 93 06/20/21 06:29 118/87 06/20/21 03:00 36.6 C 82 20 109/85 98 06/20/21 00:15 99 H Laboratory Results Laboratory Results - last 24 hr 06/19/21 06/19/21 06/19/21 11:38 11:38 11:38 WBC 8.52 RBC 4.89 Hgb 13.7 Hct 40.9 MCV 83.6 MCH 28.0 MCHC 33.5 RDW Std Deviation 41.5 RDW Coeff of Julian 13.7 Plt Count 233 MPV 10.5 H Immature Gran % (Auto) 0.2 Neut % (Auto) 73.8 Lymph % (Auto) 14.4 Thomas % (Auto) 8.3 Eos % (Auto) 3.1 Baso % (Auto) 0.2 Neut # (Auto) 6.28 Lymph # (Auto) 1.23 Thomas # (Auto) 0.71 H Eos # (Auto) 0.26 Baso # (Auto) 0.02 Immature Gran # (Auto) 0.02 APTT PTT Ratio Sodium 140 Potassium 4.2 Chloride 107 Carbon Dioxide 23 Anion Gap 10 BUN 15 Creatinine 1.11 Est Cr Clr Drug Dosing 36.8 Est GFR ( Amer) 56.7 Est GFR (Non-Af Amer) 48.9 BUN/Creatinine Ratio 13.5 Glucose 88 Calcium 9.4 Magnesium 2.2 Total Bilirubin 0.9 AST 20 ALT 17 Alkaline Phosphatase 79 Troponin I 0.03 B-Natriuretic Peptide Total Protein 7.2 Albumin 4.5 Globulin 2.7 Albumin/Globulin Ratio 1.7 Procalcitonin TSH 1.472 Urine Color Urine Appearance Urine pH Ur Specific [place] Urine Protein Urine Glucose (UA) Urine Ketones Urine Blood Urine Nitrite Urine Bilirubin Urine Urobilinogen Ur Leukocyte Esterase SARS-CoV-2, RNA, NAAT 06/19/21 06/19/21 06/19/21 11:38 11:56 13:15 WBC RBC Hgb Hct MCV MCH MCHC RDW Std Deviation RDW Coeff of Julian Plt Count MPV Immature Gran % (Auto) Neut % (Auto) Lymph % (Auto) Thomas % (Auto) Eos % (Auto) Baso % (Auto) Neut # (Auto) Lymph # (Auto) Thomas # (Auto) Eos # (Auto) Baso # (Auto) Immature Gran # (Auto) APTT PTT Ratio Sodium Potassium Chloride Carbon Dioxide Anion Gap BUN Creatinine Est Cr Clr Drug Dosing Est GFR ( Amer) Est GFR (Non-Af Amer) BUN/Creatinine Ratio Glucose Calcium Magnesium Total Bilirubin AST ALT Alkaline Phosphatase Troponin I B-Natriuretic Peptide 394 H Total Protein Albumin Globulin Albumin/Globulin Ratio Procalcitonin < 0.05 TSH Urine Color Urine Appearance Urine pH Ur Specific [place] Urine Protein Urine Glucose (UA) Urine Ketones Urine Blood Urine Nitrite Urine Bilirubin Urine Urobilinogen Ur Leukocyte Esterase SARS-CoV-2, RNA, NAAT NEGATIVE 06/19/21 06/19/21 06/19/21 17:10 17:27 23:06 WBC RBC Hgb Hct MCV MCH MCHC RDW Std Deviation RDW Coeff of Julian Plt Count MPV Immature Gran % (Auto) Neut % (Auto) Lymph % (Auto) Thomas % (Auto) Eos % (Auto) Baso % (Auto) Neut # (Auto) Lymph # (Auto) Thomas # (Auto) Eos # (Auto) Baso # (Auto) Immature Gran # (Auto) APTT 61.7 H* PTT Ratio 2.2 Sodium Potassium Chloride Carbon Dioxide Anion Gap BUN Creatinine Est Cr Clr Drug Dosing Est GFR ( Amer) Est GFR (Non-Af Amer) BUN/Creatinine Ratio Glucose Calcium Magnesium Total Bilirubin AST ALT Alkaline Phosphatase Troponin I 0.03 B-Natriuretic Peptide Total Protein Albumin Globulin Albumin/Globulin Ratio Procalcitonin TSH Urine Color Yellow Urine Appearance Clear Urine pH 6.5 Ur Specific [place] 1.006 Urine Protein Negative Urine Glucose (UA) Negative Urine Ketones Negative Urine Blood Negative Urine Nitrite Negative Urine Bilirubin Negative Urine Urobilinogen Negative Ur Leukocyte Esterase Negative SARS-CoV-2, RNA, NAAT 06/20/21 06/20/21 06/20/21 00:41 06:48 06:48 WBC 7.36 RBC 4.61 Hgb 13.0 Hct 38.2 MCV 82.9 MCH 28.2 MCHC 34.0 RDW Std Deviation 40.9 RDW Coeff of Julian 13.5 Plt Count 234 MPV 10.5 H Immature Gran % (Auto) Neut % (Auto) Lymph % (Auto) Thomas % (Auto) Eos % (Auto) Baso % (Auto) Neut # (Auto) Lymph # (Auto) Thomas # (Auto) Eos # (Auto) Baso # (Auto) Immature Gran # (Auto) APTT PTT Ratio Sodium 138 Potassium 4.1 Chloride 106 Carbon Dioxide 24 Anion Gap 8 BUN 13 Creatinine 1.01 Est Cr Clr Drug Dosing 40.4 Est GFR ( Amer) 63.5 Est GFR (Non-Af Amer) 54.8 BUN/Creatinine Ratio 12.9 Glucose 94 Calcium 9.6 Magnesium 2.0 Total Bilirubin AST ALT Alkaline Phosphatase Troponin I 0.03 B-Natriuretic Peptide Total Protein Albumin Globulin Albumin/Globulin Ratio Procalcitonin TSH Urine Color Urine Appearance Urine pH Ur Specific [place] Urine Protein Urine Glucose (UA) Urine Ketones Urine Blood Urine Nitrite Urine Bilirubin Urine Urobilinogen Ur Leukocyte Esterase SARS-CoV-2, RNA, NAAT 06/20/21 06:48 WBC RBC Hgb Hct MCV MCH MCHC RDW Std Deviation RDW Coeff of Julian Plt Count MPV Immature Gran % (Auto) Neut % (Auto) Lymph % (Auto) Thomas % (Auto) Eos % (Auto) Baso % (Auto) Neut # (Auto) Lymph # (Auto) Thomas # (Auto) Eos # (Auto) Baso # (Auto) Immature Gran # (Auto) APTT 59.7 H* PTT Ratio 2.2 Sodium Potassium Chloride Carbon Dioxide Anion Gap BUN Creatinine Est Cr Clr Drug Dosing Est GFR ( Amer) Est GFR (Non-Af Amer) BUN/Creatinine Ratio Glucose Calcium Magnesium Total Bilirubin AST ALT Alkaline Phosphatase Troponin I B-Natriuretic Peptide Total Protein Albumin Globulin Albumin/Globulin Ratio Procalcitonin TSH Urine Color Urine Appearance Urine pH Ur Specific [place] Urine Protein Urine Glucose (UA) Urine Ketones Urine Blood Urine Nitrite Urine Bilirubin Urine Urobilinogen Ur Leukocyte Esterase SARS-CoV-2, RNA, NAAT Diagnostic Findings The patient's echocardiogram 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 She has a mixed combination of mild mitral stenosis and moderately severe mitral regurgitation with a markedly dilated left atrium. Medications Administered Current Inpatient Medications Acetaminophen (Acetaminophen 325 Mg Tab) 650 mg PO Q4H PRN PRN Reason: Pain or Fever Stop: 07/19/21 14:42 Amiodarone HCl (Amiodarone 200 Mg Tab) 400 mg [facility] Stop: 07/20/21 11:59 Furosemide (Furosemide Inj 20 Mg/2 Ml Vial) 20 mg IV BID KALIE Stop: 07/20/21 10:59 Last Admin: 06/20/21 11:24 Dose: 20 mg Documented by: Heparin Sodium/Dextrose (Heparin Sodium/Dextrose) 25,000 units in 500 mls @ 20 mls/hr IV .Q24H KALIE; Protocol Stop: 07/19/21 14:14 Last Titration: 06/20/21 07:31 Dose: 1,000 units/hr, 20 mls/hr Documented by: Lamotrigine (Lamotrigine 100 Mg Tab) 150 mg PO BID KALIE Stop: 07/19/21 20:59 Last Admin: 06/20/21 08:07 Dose: 150 mg Documented by: Lisinopril (Lisinopril 5 Mg Tab) 5 mg PO QPM KALIE Stop: 07/20/21 20:59 Metoprolol Tartrate (Metoprolol Tartrate 25 Mg Tab) 12.5 mg PO Q6 KALIE Stop: 07/19/21 17:59 Last Admin: 06/20/21 06:15 Dose: 12.5 mg Documented by: Metoprolol Tartrate (Metoprolol Tartrate 1 Mg/Ml Vial) 2.5 mg IV Q6 PRN; Protocol PRN Reason: Tachycardia HR>110 Stop: 07/19/21 17:59 Potassium Chloride (Potassium Chloride Crtab 20 Meq Tabcr) 20 meq PO BID KALIE Stop: 07/20/21 10:59 Last Admin: 06/20/21 11:23 Dose: 20 meq Documented by:
[2021-06-20] MEDS: AMIODARONE 200 MG TAB PO SCH ×2 (12:49→17:11)
--- NOTE | 2021-06-20 15:05 | Hospitalist Progress Note ---
Date of Service June 20, 2021 Assessment & Plan (1) Atrial fibrillation with RVR: (2) (HFpEF) heart failure with preserved ejection fraction: Plan: Afib RVR Acute HFpEF CXR shows mild pulmonary edema, small bilateral pleural effusions. [id number] score 2 --ECHO: EF 55 to 60%. Left atrium is severely dilated. 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 Mixed pathology of both mitral valve stenosis and severe mitral regurgitation. Moderate to severe tricuspid regurgitation. Moderate pulmonary hypertension with an estimated pulmonary artery pressure of 45 mmHg. --Started on amiodarone 400 mg 3 times daily Also on metoprolol 12.5 mg every 6 hours On IV heparin for anticoagulation Appreciate cardiology input Needs DIANA to evaluate the mitral valve further and exclude contraindication to cardioversion Planned. Continue Lasix 20 mg twice daily Monitor I's and O's, daily weight Also started on lisinopril 5 mg daily (3) History of seizures: Plan: Continue Lamictal (4) DVT prophylaxis: Plan: On IV heparin Admission and Anticipated Discharge Date Admission Date: June 19, 2021 Subjective Patient is seen and examined at bedside States feeling better today Denies any chest pain, shortness breath, dizziness, nausea, abdominal pain Currently on IV heparin Denies any bleeding issues Review of Systems Review of Systems: All systems reviewed & are unremarkable except as noted in Subjective Physical Exam Physical Exam: Physical Exam: Vitals signs as noted above General Appearance:Moderately built and nourished, no apparent distress Head: normocephalic, Atraumatic Eyes: normal inspection, EOMI Neck: supple, Trachea midline Respiratory/Chest: Normal breath sounds, CTA, No accessory muscle use Cardiovascular: Irregularly irregular, +murmur Abdomen/GI:Soft, Non tender, Bowel sounds present Extremities/Musculoskeletal:normal inspection, no edema Neurologic/Psych:AAOX3, grossly no focal neurological deficits Skin: normal color, warm Results & Data Results & Data ([facility]) Vital Signs (Past 12 Hours) Vital Signs Temp Pulse Resp BP Pulse Ox 06/20/21 12:48 102 H 100/79 06/20/21 11:16 106 H 110/80 06/20/21 07:31 36.6 C 98 H 18 105/90 93 06/20/21 06:29 118/87 Laboratory Results Short CBC 06/20/21 Range/Units 06:48 WBC 7.36 (4.8-10.8) K/uL Hgb 13.0 (12.0-16.0) g/dL Hct 38.2 (37-47) % Plt Count 234 (130-400) K/uL BMP 06/20/21 06:48 Sodium 138 Potassium 4.1 Chloride 106 Carbon Dioxide 24 BUN 13 Creatinine 1.01 Glucose 94 Calcium 9.6 Cardiac Enzymes 06/19/21 06/20/21 Range/Units 17:27 00:41 Troponin I 0.03 0.03 (0-0.04) ng/ml Urine 06/19/21 Range/Units 17:10 Urine Color Yellow Urine Appearance Clear (Clear) Urine pH 6.5 (4.5-7.5) Ur Specific [place] 1.006 (1.000-1.030) Urine Protein Negative (Negative) Urine Glucose (UA) Negative (Negative)
[2021-06-20] MEDS: HEPARIN SODIUM/DEXTROSE 25,000 UNITS/500 ML BAG IV SCH (16:07)
[2021-06-20] MEDS: lisinopril 5 MG TAB PO SCH (20:52)
[2021-06-21] MEDS: METOPROLOL TARTRATE 25 MG TAB PO SCH ×2 (05:37→20:08)
[2021-06-21 06:11] LABS: Hematocrit (blood only) 38.5 % (37-47); Mean Corpuscular Hemoglobin 28.1 pg (25-34); Mean Corpuscular Hgb Conc 33.8 g/dL (32-36); Mean Corpuscular Volume 83.2 fL (80-100); Mean Platelet Volume 10.4 fL (7.4-10.4); Platelet Count 256 K/uL (130-400); RDW Coefficient of Variation 13.7 % (11.5-14.5); Red Blood Count 4.63 M/uL (4.2-5.4); White Blood Count 6.74 K/uL (4.8-10.8)
--- NOTE | 2021-06-21 06:17 | Electrocardiogram Report ---
Test Reason : Blood Pressure : / mmHG Vent. Rate : 105 BPM Atrial Rate : 267 BPM P-R Int : 000 ms QRS Dur : 088 ms QT Int : 354 ms P-R-T Axes : 000 076 -62 degrees QTc Int : 467 ms Atrial fibrillation with rapid ventricular response Nonspecific ST and T wave abnormality Abnormal ECG When compared with ECG of 19-JUN-2021 11:25, No significant change was found Confirmed by Louis Kapadia ([id number]) on 06/21/2021 6:16:43 AM Referred By: Saeid Pena Confirmed By:Louis Kapadia
[2021-06-21 06:39] LABS: Partial Thromboplastin Ratio 2.2
[2021-06-21 07:04] LABS: BUN Creatinine Ratio 14.2 (10-20); Calcium 9.4 mg/dl (8.5-10.1); Est GFR (African American) 51.6 ml/min; Est GFR (Non-African American) 44.5 ml/min; Magnesium 2.1 mg/dl (1.7-2.4); Potassium 4.1 mmol/L (3.5-5.1)
[2021-06-21 07:05] LABS: Partial Thromboplastin Time 59.7 Seconds (21.0-31.0)
[2021-06-21] MEDS: POTASSIUM CHLORIDE CRTAB 20 MEQ TABCR PO SCH (08:00)
[2021-06-21] MEDS: AMIODARONE 200 MG TAB PO SCH ×3 (08:01→17:04)
[2021-06-21] MEDS: FUROSEMIDE INJ 20 MG/2 ML VIAL IV SCH (08:01)
[2021-06-21] MEDS: lamoTRIgine 100 MG TAB PO SCH ×2 (08:01→20:12)
--- NOTE | 2021-06-21 10:45 | Cardiology Progress Note ---
Date of Service June 21, 2021 Assessment & Plan (1) Atrial fibrillation with RVR: (2) (HFpEF) heart failure with preserved ejection fraction: (3) Mitral regurgitation and mitral stenosis: Plan: The plan will be to perform a transesophageal echocardiogram tomorrow to look at the mitral valve to better understand if he can be surgically repaired or will need a prosthetic. My feeling is that it will need a prosthetic valve replacement. In which case the surgery should be put off for as long as we can. If the DIANA does not show a contraindication to performing cardioversion then we will proceed with a CV. Admission and Anticipated Discharge Date Admission Date: June 19, 2021 Subjective The patient had an uneventful night. She remains in atrial fibrillation with better controlled heart rates. Review of Systems Review of Systems: Review of Systems: See HPI for pertinent positives. All other 10 point review of systems are negative. Physical Exam Physical Exam: General: no acute distress and stated age Head: normocephalic, no masses, lesions, tenderness or abnormalities Eyes: conjunctiva are pink and non-injected, sclera clear Neck: supple, no adenopathy, no bruits, normal jugular venous pulse, no hepatojugular reflux Chest: normal shape and normal respiratory effort Lungs: clear to auscultation and percussion Cardiac Exam: - irregular rate & rhythm, no murmurs gallops or rubs - normal S1, normal S2 Pulses: 2(+) throughout Abdomen: abdomen soft, non-tender, no abnormal masses and no hepatosplenomegaly Musculoskeletal: no gait disturbance, no joint inflammation, no deforming arthritis Extremities: no edema and no cyanosis Neuro: grossly normal exam Results & Data ([facility]) Vital Signs (Past 12 Hours) Vital Signs Temp Pulse Pulse Resp BP Pulse Ox 06/21/21 07:55 36.4 C L 87 16 78/59 L 96 06/21/21 03:00 36.6 C 85 18 91/68 L 96 06/20/21 23:51 91 H 06/20/21 23:00 36.6 C 92 H 18 116/70 95 Laboratory Results Laboratory Results - last 24 hr 06/21/21 06/21/21 06/21/21 05:55 05:55 05:55 WBC 6.74 RBC 4.63 Hgb 13.0 Hct 38.5 MCV 83.2 MCH 28.1 MCHC 33.8 RDW Std Deviation 41.0 RDW Coeff of Julian 13.7 Plt Count 256 MPV 10.4 APTT 59.7 H* PTT Ratio 2.2 Sodium 140 Potassium 4.1 Chloride 106 Carbon Dioxide 28 Anion Gap 6 BUN 17 Creatinine 1.20 Est Cr Clr Drug Dosing 34.0 Est GFR ( Amer) 51.6 Est GFR (Non-Af Amer) 44.5 BUN/Creatinine Ratio 14.2 Glucose 97 Calcium 9.4 Magnesium 2.1 Medications Administered Current Inpatient Medications Acetaminophen (Acetaminophen 325 Mg Tab) 650 mg PO Q4H PRN PRN Reason: Pain or Fever Stop: 07/19/21 14:42 Amiodarone HCl (Amiodarone 200 Mg Tab) 400 mg PO TIDM [facility] Stop: 07/20/21 11:59 Last Admin: 06/21/21 08:01 Dose: 400 mg Documented by: Furosemide (Furosemide 20 Mg Tab) 20 mg PO BID17 KALIE Stop: 07/21/21 16:59 Heparin Sodium/Dextrose (Heparin Sodium/Dextrose) 25,000 units in 500 mls @ 20 mls/hr IV .Q24H KALIE; Protocol Stop: 07/19/21 14:14 Last Titration: 06/21/21 07:06 Dose: 1,000 units/hr, 20 mls/hr Documented by: Sodium Chloride (Nss 1000ml) 1,000 mls @ 80 mls/hr IV .[id number] [facility] Stop: 07/21/21 23:44 Lamotrigine (Lamotrigine 100 Mg Tab) 150 mg PO BID KAILE Stop: 07/19/21 20:59 Last Admin: 06/21/21 08:01 Dose: 150 mg Documented by: Lisinopril (Lisinopril 5 Mg Tab) 5 mg PO QPM KALIE Stop: 07/20/21 20:59 Last Admin: 06/20/21 20:52 Dose: 5 mg Documented by: Metoprolol Tartrate (Metoprolol Tartrate 1 Mg/Ml Vial) 2.5 mg IV Q6 PRN; Protocol PRN Reason: Tachycardia HR>110 Stop: 07/19/21 17:59 Metoprolol Tartrate (Metoprolol Tartrate 25 Mg Tab) 12.5 mg PO BID [facility] Stop: 07/21/21 20:59 Potassium Chloride (Potassium Chloride Crtab 20 Meq Tabcr) 20 meq PO DAILY [facility] Stop: 07/22/21 08:59
--- NOTE | 2021-06-21 13:46 | Hospitalist Progress Note ---
Date of Service June 21, 2021 Assessment & Plan (1) Atrial fibrillation with RVR: (2) (HFpEF) heart failure with preserved ejection fraction: Plan: Afib RVR Acute HFpEF CXR shows mild pulmonary edema, small bilateral pleural effusions. [id number] score 2 -ECHO: EF 55 to 60%. Left atrium is severely dilated. 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 Mixed pathology of both mitral valve stenosis and severe mitral regurgitation. Moderate to severe tricuspid regurgitation. Moderate pulmonary hypertension with an estimated pulmonary artery pressure of 45 mmHg. 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 Plan for DIANA tomorrow Will keep NPO PMN (3) History of seizures: Plan: Continue Lamictal (4) DVT prophylaxis: Plan: On IV heparin Admission and Anticipated Discharge Date Admission Date: June 19, 2021 Subjective Patient seen and examined. Patient reports generalized weakness. Denies any headache, dizziness Denies any chest pain, palpitations, cough, shortness of breath Denies any fevers, chills Denies nausea, vomiting, abdominal pain, diarrhea constipation Denies dysuria, frequency, urgency Physical Exam Constitutional: + well hydrated; no acute distress Eyes: PERRL, conjunctivae normal, anicteric sclerae ENMT: external ear and nose normal, oropharynx normal Respiratory: normal respiratory effort, lungs clear to auscultation Cardiovascular: Rate/Rhythm: + irregularly irregular S1 S2 Gastrointestinal (Abdomen): normal bowel sounds, soft, nontender, no hepatosplenomegaly Musculoskeletal: no cyanosis or clubbing, extremities motor strength 5/5 Neurologic: PERRL, EOMI, accommodation nl, no face palsy, no dysarthria Psychiatric: A+Ox3, euthymic affect Results & Data Results & Data ([facility]) Vital Signs (Past 12 Hours) Vital Signs Temp Pulse Resp BP Pulse Ox 06/21/21 11:42 36.4 C L 84 15 89/61 L 95 06/21/21 07:55 36.4 C L 87 16 78/59 L 96 06/21/21 03:00 36.6 C 85 18 91/68 L 96 Laboratory Results Abnormal lab results 06/21/21 Range/Units 05:55 APTT 59.7 H* (21.0-31.0) Seconds
[2021-06-21] MEDS: HEPARIN SODIUM/DEXTROSE 25,000 UNITS/500 ML BAG IV SCH (14:07)
[2021-06-21] MEDS: FUROSEMIDE 20 MG TAB PO SCH (17:04)
[2021-06-21] MEDS: lisinopril 5 MG TAB PO SCH (20:12)
--- NOTE | 2021-06-21 21:49 | Electrocardiogram Report ---
Test Reason : Blood Pressure : / mmHG Vent. Rate : 096 BPM Atrial Rate : 234 BPM P-R Int : 000 ms QRS Dur : 086 ms QT Int : 392 ms P-R-T Axes : 000 069 -65 degrees QTc Int : 495 ms Atrial fibrillation Nonspecific ST and T wave abnormality Prolonged QT Abnormal ECG When compared with ECG of 20-JUN-2021 06:24, No significant change was found Confirmed by Louis Kapadia ([id number]) on 06/21/2021 9:48:44 PM Referred By: Saeid Pena Confirmed By:Louis Kapadia
[2021-06-22] MEDS: SODIUM CHLORIDE 0.9% 1000ML 1,000 ML IV SCH ×2 (00:03→13:37)
[2021-06-22 07:32] LABS: Hematocrit (blood only) 39.9 % (37-47); Hemoglobin 12.8 g/dL (12.0-16.0); Mean Corpuscular Hgb Conc 32.1 g/dL (32-36); Mean Corpuscular Volume 84.2 fL (80-100); Mean Platelet Volume 10.8 fL (7.4-10.4); Platelet Count 241 K/uL (130-400); RDW Coefficient of Variation 13.7 % (11.5-14.5); RDW Standard Deviation 41.6 fL (36.4-46.3); Red Blood Count 4.74 M/uL (4.2-5.4); White Blood Count 6.08 K/uL (4.8-10.8)
[2021-06-22 07:59] LABS: BUN Creatinine Ratio 13.4 (10-20); Calcium 8.9 mg/dl (8.5-10.1); Creatinine Clr Calc Pharmacy 30.5 ml/min; Est GFR (African American) 45.1 ml/min; Est GFR (Non-African American) 38.9 ml/min; Partial Thromboplastin Ratio 2.4; Potassium 4.7 mmol/L (3.5-5.1)
[2021-06-22 08:00] LABS: Partial Thromboplastin Time 66.2 Seconds (21.0-31.0)
[2021-06-22] MEDS: lamoTRIgine 100 MG TAB PO SCH ×2 (08:03→20:03)
[2021-06-22] MEDS: AMIODARONE 200 MG TAB PO SCH ×3 (08:04→15:44)
[2021-06-22] MEDS: POTASSIUM CHLORIDE CRTAB 20 MEQ TABCR PO SCH (08:04)
[2021-06-22] MEDS: FUROSEMIDE 20 MG TAB PO SCH ×2 (08:06→15:45)
[2021-06-22] MEDS: METOPROLOL TARTRATE 25 MG TAB PO SCH ×2 (08:07→20:02)
[2021-06-22] MEDS ORDERED: BENZOCAINE/TETRACAIN/BUTAM 50 APPLN/5 GM CAN EXT ONE (12:02)
--- NOTE | 2021-06-22 12:05 | Hospitalist Progress Note ---
Date of Service June 22, 2021 Assessment & Plan (1) Atrial fibrillation with RVR: (2) (HFpEF) heart failure with preserved ejection fraction: Plan: Afib RVR Acute HFpEF CXR shows mild pulmonary edema, small bilateral pleural effusions. [id number] score 2 -ECHO: EF 55 to 60%. Left atrium is severely dilated. 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 Mixed pathology of both mitral valve stenosis and severe mitral regurgitation. Moderate to severe tricuspid regurgitation. Moderate pulmonary hypertension with an estimated pulmonary artery pressure of 45 mmHg. 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 Denies any headache, dizziness Denies any chest pain, palpitations, cough, shortness of breath Denies any fevers, chills Denies nausea, vomiting, abdominal pain, diarrhea constipation Denies dysuria, frequency, urgency Physical Exam Constitutional: + well hydrated; no acute distress Eyes: PERRL, conjunctivae normal, anicteric sclerae ENMT: external ear and nose normal, oropharynx normal Respiratory: normal respiratory effort, lungs clear to auscultation Cardiovascular: Rate/Rhythm: + irregularly irregular S1 S2 Gastrointestinal (Abdomen): normal bowel sounds, soft, nontender, no hepatosplenomegaly Musculoskeletal: no cyanosis or clubbing, extremities motor strength 5/5 Neurologic: PERRL, EOMI, accommodation nl, no face palsy, no dysarthria Psychiatric: A+Ox3, euthymic affect Results & Data Results & Data ([facility]) Vital Signs (Past 12 Hours) Vital Signs Temp Pulse Resp BP Pulse Ox 06/22/21 08:00 36.6 C 126 H 16 105/63 98 06/22/21 04:25 36.6 C 94 H 18 99/58 L 94 06/22/21 00:07 36.7 C 92 H 16 80/57 L 95 Laboratory Results Abnormal lab results 06/22/21 06/22/21 06/22/21 Range/Units 07:11 07:11 07:11 MPV 10.8 H (7.4-10.4) fL APTT 66.2 H* (21.0-31.0) Seconds Chloride 109 H (98-107) mmol/L Creatinine 1.34 H (0.6-1.2) mg/dl
[2021-06-22] MEDS ORDERED: LIDOCAINE 2% 2 ML VIAL/AMP(20MG/ML) INFIL ONE (12:30)
[2021-06-22] MEDS ORDERED: PROPOFOL IV EMULSION 10 MG/ML 20 ML VIAL IV ONE (12:30)
--- NOTE | 2021-06-22 12:38 | Anesthesiology Consultation ---
Date of Service June 22, 2021 Assessment & Plan Chart Review Chart Review: Acceptable Risk for Surgery and Patient NOT seen in Pre Admission Testing Consults Requested none ASA ASA3 Proposed Anesthesia Anesthesia Type: MAC Risk / Benefits Reviewed With: PT / POA / Parent / Guardian, Accepts Plan and Informed Consent Obtained History Surgery Operation Date: 06/22/21 12:15 Proposed Procedures p Transesophageal Echo w/Anesthesia - Darrick Dickey, DO Height/Weight Height: 5 ft 3 in Weight: 61.6 kg Allergies Allergy/AdvReac Type Severity Reaction Status Date / Time No Known Allergies Allergy Mild Unverified 04/10/08 16:03 Medications Home Medications Medication Instructions Recorded Confirmed Last Taken cholecalciferol (vitamin D3) 25 25 mcg PO QAM 06/19/21 06/19/21 06/19/21 mcg (1,000 unit) tablet (Vitamin D3) lamotrigine 150 mg tablet 150 mg PO BID 06/19/21 06/19/21 06/19/21 multivitamin 1 tab PO QAM 06/19/21 06/19/21 06/19/21 Active Medications Generic Name Dose Route Start Last Admin Trade Name Litq PRN Reason Stop Dose Admin Amiodarone HCl 400 mg 06/20/21 12:00 06/22/21 08:04 Amiodarone 200 Mg Tab PO 07/20/21 11:59 400 mg TIDM KALIE Administration Furosemide 20 mg 06/21/21 17:00 06/22/21 08:06 Furosemide 20 Mg Tab PO 07/21/21 16:59 20 mg [id number] KALIE Administration Heparin Sodium/Dextrose 25,000 units in 500 mls @ 20 mls/hr 06/19/21 14:15 06/22/21 07:10 Heparin Sodium/Dextrose IV 07/19/21 14:14 1,000 units/hr .Q24H KALIE 20 mls/hr Titration Protocol 1,000 UNITS/HR Sodium Chloride 1,000 mls @ 80 mls/hr 06/21/21 23:45 06/22/21 00:03 Nss 1000ml IV 07/21/21 23:44 80 mls/hr .[id number] KALIE Administration Lamotrigine 150 mg 06/19/21 21:00 06/22/21 08:03 Lamotrigine 100 Mg Tab PO 07/19/21 20:59 150 mg BID KALIE Administration Lisinopril 5 mg 06/20/21 21:00 06/21/21 20:12 Lisinopril 5 Mg Tab PO 07/20/21 20:59 5 mg QPM KALIE Administration Metoprolol Tartrate 12.5 mg 06/21/21 21:00 06/22/21 08:07 Metoprolol Tartrate 25 Mg Tab PO 07/21/21 20:59 Not Given BID KALIE Potassium Chloride 20 meq 06/22/21 09:00 06/22/21 08:04 Potassium Chloride Crtab 20 Meq Tabcr PO 07/22/21 08:59 20 meq DAILY KALIE Administration NPO Date Last Intake of Fluids: 06/14/21 Time Last Intake of Fluids: 18:00 Date Last Intake of Solids: 06/21/21 Time Last Intake of Solids: 18:00 Past Medical History Medical History History of seizures Exercise / Class Metabolic Activity II 4-5 Yardwork/Stairs/Walk up hill Past Family History Family History Mother Multiple myeloma Father Kidney disease Past Surgical History Surgical History History of tonsillectomy and adenoidectomy Past Anesthesia History No Hx of Anesthesia Complications and No Family Hx of Anesthesia Complications History of PONV No Hx of PONV and No Hx of Motion Sickness Social History Smoking Status: Former smoker tobacco type: cigarettes Smoking cigarettes per day: 2 per day Do You Dip or Chew Tobacco: No Hx Alcohol Use: Yes alcohol intake frequency: holidays/special occasions only Hx Substance Use: No Physical Exam Vital Signs Last Vital Signs Temp 36.7 C 06/22/21 12:22 Pulse 108 H 06/22/21 12:22 Resp 18 06/22/21 12:22 BP 105/63 06/22/21 08:00 Pulse Ox 97 06/22/21 12:22 ENMT Mouth: no dentition abnormality Thyromental Distance: > or= 3.5 Finger Breadths Mallampati Class: II Neck normal visual inspection Respiratory normal respiratory effort Auscultation: lungs clear to auscultation bilaterally Cardiovascular Rate/Rhythm: regular rate and regular rhythm Psychiatric Orientation: alert Testing Laboratory Results 06/22/21 07:11 06/22/21 07:11 APTT 66.2 Seconds (21.0-31.0) H* 06/22/21 07:11 Urine Color Yellow 06/19/21 17:10 Urine Appearance Clear (Clear) 06/19/21 17:10 Urine pH 6.5 (4.5-7.5) 06/19/21 17:10 Ur Specific [place] 1.006 (1.000-1.030) 06/19/21 17:10 Urine Protein Negative (Negative) 06/19/21 17:10 Urine Glucose (UA) Negative (Negative) 06/19/21 17:10 Urine Ketones Negative (Negative) 06/19/21 17:10 Urine Nitrite Negative (Negative) 06/19/21 17:10 Ur Leukocyte Esterase Negative (Negative) 06/19/21 17:10
--- NOTE | 2021-06-22 13:02 | Cardioversion ---
Date of Service June 22, 2021 Electrical Cardioversion Rpt Electrical Cardioversion Report After informed consent was obtained. The patient underwent a transesophageal echocardiogram to exclude contraindications for cardioversion. The patient was sedated by anesthesia. She then received 300 J of synchronized energy and converted to normal sinus rhythm. Patient was recovered in the holding area the Senior Safety Management Consultant and then returned to her room in stable condition.
--- NOTE | 2021-06-22 13:06 | Cardiology Progress Note ---
Date of Service June 22, 2021 Assessment & Plan (1) Atrial fibrillation with RVR: (2) (HFpEF) heart failure with preserved ejection fraction: (3) Mitral regurgitation and mitral stenosis: Plan: The patient had a successful cardioversion today. The plan will be to switch her over to Eliquis and stop her heparin. Continue amiodarone at a lower dose. Admission and Anticipated Discharge Date Admission Date: June 19, 2021 Subjective I saw the patient today during her cardioversion. She had an uneventful night with no new cardiac complaints. Review of Systems Review of Systems: Review of Systems: See HPI for pertinent positives. All other 10 point review of systems are negative. Physical Exam Physical Exam: General: no acute distress and stated age Head: normocephalic, no masses, lesions, tenderness or abnormalities Eyes: conjunctiva are pink and non-injected, sclera clear Neck: supple, no adenopathy, no bruits, normal jugular venous pulse, no hepatojugular reflux Chest: normal shape and normal respiratory effort Lungs: clear to auscultation and percussion Cardiac Exam: - irregular rate & rhythm, no murmurs gallops or rubs - normal S1, normal S2 Pulses: 2(+) throughout Abdomen: abdomen soft, non-tender, no abnormal masses and no hepatosplenomegaly Musculoskeletal: no gait disturbance, no joint inflammation, no deforming art hritis Extremities: no edema and no cyanosis Neuro: grossly normal exam Results & Data ([facility]) Vital Signs (Past 12 Hours) Vital Signs Temp Pulse Resp BP Pulse Ox 06/22/21 12:22 36.7 C 108 H 18 97 06/22/21 08:00 36.6 C 126 H 16 105/63 98 06/22/21 04:25 36.6 C 94 H 18 99/58 L 94 Laboratory Results Laboratory Results - last 24 hr 06/22/21 06/22/21 06/22/21 07:11 07:11 07:11 WBC 6.08 RBC 4.74 Hgb 12.8 Hct 39.9 MCV 84.2 MCH 27.0 MCHC 32.1 RDW Std Deviation 41.6 RDW Coeff of Julian 13.7 Plt Count 241 MPV 10.8 H APTT 66.2 H* PTT Ratio 2.4 Sodium 140 Potassium 4.7 Chloride 109 H Carbon Dioxide 27 Anion Gap 4 BUN 18 Creatinine 1.34 H Est Cr Clr Drug Dosing 30.5 Est GFR ( Amer) 45.1 Est GFR (Non-Af Amer) 38.9 BUN/Creatinine Ratio 13.4 Glucose 92 Calcium 8.9 Medications Administered Current Inpatient Medications Acetaminophen (Acetaminophen 325 Mg Tab) 650 mg PO Q4H PRN PRN Reason: Pain or Fever Stop: 07/19/21 14:42 Amiodarone HCl (Amiodarone 200 Mg Tab) 200 mg PO TIDM [facility] Stop: 07/22/21 16:59 Furosemide (Furosemide 20 Mg Tab) 20 mg PO BID17 KALIE Stop: 07/21/21 16:59 Last Admin: 06/22/21 08:06 Dose: 20 mg Documented by: Heparin Sodium/Dextrose (Heparin Sodium/Dextrose) 25,000 units in 500 mls @ 20 mls/hr IV .Q24H [facility]; Protocol Stop: 07/19/21 14:14 Last Titration: 06/22/21 07:10 Dose: 1,000 units/hr, 20 mls/hr Documented by: Sodium Chloride (Nss 1000ml) 1,000 mls @ 80 mls/hr IV .[id number] [facility] Stop: 07/21/21 23:44 Last Admin: 06/22/21 00:03 Dose: 80 mls/hr Documented by: Lamotrigine (Lamotrigine 100 Mg Tab) 150 mg PO BID [facility] Stop: 07/19/21 20:59 Last Admin: 06/22/21 08:03 Dose: 150 mg Documented by: Lisinopril (Lisinopril 5 Mg Tab) 5 mg PO QPM [facility] Stop: 07/20/21 20:59 Last Admin: 06/21/21 20:12 Dose: 5 mg Documented by: Metoprolol Tartrate (Metoprolol Tartrate 1 Mg/Ml Vial) 2.5 mg IV Q6 PRN; Protocol PRN Reason: Tachycardia HR>110 Stop: 07/19/21 17:59 Metoprolol Tartrate (Metoprolol Tartrate 25 Mg Tab) 12.5 mg PO BID [facility] Stop: 07/21/21 20:59 Last Admin: 06/22/21 08:07 Dose: Not Given Documented by: Potassium Chloride (Potassium Chloride Crtab 20 Meq Tabcr) 20 meq PO DAILY [facility] Stop: 07/22/21 08:59 Last Admin: 06/22/21 08:04 Dose: 20 meq Documented by:
--- NOTE | 2021-06-22 13:27 | Anesthesiology Progress Note ---
Date of Service June 22, 2021 Anesthesia Post Procedure Vital Signs Vital Signs: Temp Pulse Resp BP Pulse Ox 06/22/21 13:15 70 20 93/64 L 95 06/22/21 13:00 73 20 92/62 L 94 06/22/21 12:22 36.7 C 108 H 18 97 06/22/21 08:00 36.6 C 126 H 16 105/63 98 06/22/21 04:25 36.6 C 94 H 18 99/58 L 94 06/22/21 00:07 36.7 C 92 H 16 80/57 L 95 06/21/21 19:47 36.6 C 75 16 88/67 L 96 06/21/21 15:15 36.8 C 94 H 16 93/75 L 94 Transfer of Care Handoff Completed per policy Notes Mental Status: alert / awake / arousable Patient Amnestic to Procedure: Yes Nausea / Vomiting: adequately controlled Pain: adequately controlled Airway Patency, RR, SpO2: stable & adequate BP & HR: stable & adequate Hydration State: stable & adequate Anesthetic Complications: no major complications apparent
[2021-06-22] MEDS: HEPARIN SODIUM/DEXTROSE 25,000 UNITS/500 ML BAG IV SCH (14:44)
[2021-06-22] MEDS: lisinopril 5 MG TAB PO SCH (20:01)
[2021-06-23] MEDS: AMIODARONE 200 MG TAB PO SCH (07:58)
[2021-06-23] MEDS: FUROSEMIDE 20 MG TAB PO SCH (07:59)
[2021-06-23] MEDS: lamoTRIgine 100 MG TAB PO SCH (07:59)
[2021-06-23] MEDS: POTASSIUM CHLORIDE CRTAB 20 MEQ TABCR PO SCH (08:00)
[2021-06-23] MEDS: METOPROLOL TARTRATE 25 MG TAB PO SCH (08:01)
[2021-06-23 08:34] LABS: BUN Creatinine Ratio 15.5 (10-20); Calcium 8.7 mg/dl (8.5-10.1); Creatinine Clr Calc Pharmacy 35.2 ml/min; Est GFR (African American) 53.7 ml/min; Est GFR (Non-African American) 46.3 ml/min; Potassium 4.2 mmol/L (3.5-5.1)
[2021-06-23 08:46] LABS: Partial Thromboplastin Time 83.3 Seconds (21.0-31.0)
[2021-06-23] MEDS ORDERED: APIXABAN 5 MG TABLET PO SCH (09:00)
--- NOTE | 2021-06-23 10:08 | Discharge Summary ---
Date of Service June 23, 2021 Admission HPI Per Admitting Provider 76-year-old female with PMH CKD stage III, history of seizures, and other problems listed below who was referred to the ED from [facility] for evaluation of tachycardia. Patient reports that over the past 1 week, she has had sinus congestion, cough, exertional shortness of breath. Cough has been productive for yellow/green sputum at times. She denies fevers and chills. No chest pain or palpitations. Denies lightheadedness, dizziness, diaphoresis, syncopal events. No abdominal pain, nausea, vomiting, diarrhea. Denies urinary symptoms. Patient was initially seen at [facility] and found to be tach ycardic, was referred to the ED for further evaluation. In the ED, patient was found to be in atrial flutter with RVR. She received metoprolol 5 mg IV and the Toprol tartrate 25 mg PO with improvement in heart rate. Labs are unremarkable. CXR shows mild pulmonary edema. Admission Exam Per Admitting Provider Constitutional: WD/WN, vitals as above Eyes: PERRL, conjunctivae normal, anicteric sclerae ENMT: external ear and nose normal, oropharynx normal Respiratory: normal respiratory effort; no respiratory distress Auscultation: + crackles (Left base) Cardiovascular: Rate/Rhythm: regular rate and + irregularly irregular Vessels: normal peripheral pulses Extremities: no edema Gastrointestinal (Abdomen): normal bowel sounds, soft, nontender, no hepatosplenomegaly Musculoskeletal: no cyanosis or clubbing, extremities motor strength 5/5 Skin: no rashes, warm and dry Neurologic: PERRL, EOMI, accommodation nl, no face palsy, no dysarthria Psychiatric: A+Ox3, euthymic affect Principal Diagnosis Atrial fibrillation with Rapid Ventricular Rate Status post cardioversion Acute heart failure with preserved ejection fraction Discharge Exam Constitutional + well hydrated; no acute distress Eyes PERRL, conjunctivae normal, anicteric sclerae ENMT external ear and nose normal, oropharynx normal Respiratory normal respiratory effort, lungs clear to auscultation Cardiovascular Rate/Rhythm: regular rate and regular rhythm S1 S2 Gastrointestinal (Abdomen) normal bowel sounds, soft, nontender, no hepatosplenomegaly Musculoskeletal no cyanosis or clubbing, extremities motor strength 5/5 Neurologic PERRL, EOMI, accommodation nl, no face palsy, no dysarthria Psychiatric A+Ox3, euthymic affect Discharge Data Allergies Allergy/AdvReac Type Severity Reaction Status Date / Time No Known Allergies Allergy Mild Unverified 04/10/08 16:03 Consultations 06/19/21 13:10 ED Decision to Admit Stat 06/19/21 14:43 Consult Cardiology Routine 06/21/21 10:34 Consult Anesthesiology Routine 06/21/21 10:37 Consult Anesthesiology Routine Procedures Performed Operation Date: 06/22/21 12:15 Actual Procedures p Echo Transesophageal - Darrick Dickey DO Hospital Course (1) Atrial fibrillation with RVR: (2) (HFpEF) heart failure with preserved ejection fraction: Afib RVR Acute HFpEF CXR shows mild pulmonary edema, small bilateral pleural effusions. [id number] score 2 -ECHO: EF 55 to 60%. Left atrium is severely dilated. 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 Mixed pathology of both mitral valve stenosis and severe mitral regurgitation. Moderate to severe tricuspid regurgitation. Moderate pulmonary hypertension with an estimated pulmonary artery pressure of 45 mmHg. Patient was diagnosed with Afib with RVR, acute diastolic heart failure. She was started on amiodarone loading and heparin drip She was evaluated by [employer]. Patient had DIANA and successful cardioversion Heparin drip was changed to po Eliquis. Patient was discharged on amiodarone 200 mg twice daily and to follow-up with cardiology. Was also started on metoprolol 12.5 mg twice daily, lisinopril 5 mg every afternoon. Was started on Lasix 20 mg twice daily and potassium 20 mEq daily. [employer]. Patient was provided education about his medications. Patient is to follow-up with cardiology outpatient as well as PCP. (3) History of seizures: Continue Lamictal Total Time Total Time Spent Total Time Spent (In Minutes): 40 Total Time Includes: Examination of the Patient, Discharge Planning, Medication Reconciliation and Communication With Other Providers Discharge Plan Discharge Items Patient Disposition: Home - Self-Care Reason For Visit: AFLUTTER RVR Discharge Diagnosis: Atrial fibrillation with Rapid Ventricular Rate Status post cardioversion Acute heart failure with preserved ejection fraction Condition on Discharge: Fair Activity: Resume your previous activity Non-emergency contact: Primary Care Provider and [employer] Call non-emergency contact if: you have any medication questions Follow-up/Referrals: Darrick Dickey DO [[employer]] - Forrest,Saeid E., MD [Primary Care Provider] - (Follow up within 1 week) Diet: Heart Healthy and Low Sodium (2gm) Addtl Attending Provider Instructions: Mrs Sherwood You came to the hospital complaining of cough, shortness of breath. You were evaluated and found to have atrial fibrillation and diastolic heart failure. You were managed with medications. You had cardioversion by the lower in supervisor. You are being discharged on amiodarone and metoprolol. You were started on blood thinner (eliquis or apixaban) to reduce risk of stroke. You were also started on diuretic (furosemide) and a blood pressure medication lisinopril. It is extremely important that you follow up with Cardiology in the office. Please ensure follow up with your Primary Doctor. It was a pleasure taking care of you. Pending Studies at Discharge: No Stand-Alone Forms: My [facility], Smoking Cessation Medications and DC Order Prescriptions: New amiodarone 200 mg Tablet 200 mg PO BID Qty: 60 RF: 0 potassium chloride 20 mEq Tablet,Er Particles/Crystals 20 meq PO DAILY Qty: 30 RF: 0 lisinopril [Zestril] 5 mg Tablet 5 mg PO QPM Qty: 30 RF: 0 furosemide 20 mg Tablet 20 mg PO [id number] Qty: 60 RF: 0 metoprolol tartrate 25 mg Tablet 12.5 mg PO BID Qty: 60 RF: 0 Eliquis 5 mg Tablet 5 mg PO BID Qty: 60 RF: 0 Continued lamotrigine 150 mg tablet 150 mg PO BID RF: 0 multivitamin Tablet 1 tab PO QAM RF: 0 cholecalciferol (vitamin D3) [Vitamin D3] 25 mcg (1,000 unit) Tablet 25 mcg PO QAM RF: 0 Discharge Orders: Discharge Order (Routine); Ordered 06/23/21 Ordered By: Eliane Light/Other Patient Handouts: Metoprolol Oral Tablet 25 mg, Amiodarone Oral Tablet 200 mg, Potassium Chloride Extended Release Oral Tablet 20 mEq, Lisinopril Oral Tablet 5 mg, Furosemide Oral Tablet 20 mg, Apixaban Oral Tablet 5 mg, AFib Dc Admission Data Admit Date/Time: 06/19/21 13:19 Attending Provider: Eliane Kinney I. Admit Provider: Juliano Carrasquillo Primary Care Provider: Saeid Pena Other Providers: Juliano Carrasquillo ; Darrick Dickey ; Abigail Evans Other Interventions: Discharge Summary Assessment (RN) Last Done: 06/23/21 10:56
--- NOTE | 2021-06-23 10:59 | Cardiology Progress Note ---
Date of Service June 23, 2021 Assessment & Plan (1) Atrial fibrillation with RVR: (2) (HFpEF) heart failure with preserved ejection fraction: (3) Mitral regurgitation and mitral stenosis: Plan: The patient is ready for discharge today. I will arrange follow-up with our clinic. She should remain on amiodarone 200 mg twice daily until I see her in the clinic. Otherwise the remainder of her medications should remain the same. Admission and Anticipated Discharge Date Admission Date: June 19, 2021 Subjective Patient had an uneventful night. Review of Systems Review of Systems: Review of Systems: See HPI for pertinent positives. All other 10 point review of systems are negative. Physical Exam Physical Exam: General: no acute distress and stated age Head: normocephalic, no masses, lesions, tenderness or abnormalities Eyes: conjunctiva are pink and non-injected, sclera clear Neck: supple, no adenopathy, no bruits, normal jugular venous pulse, no hepatojugular reflux Chest: normal shape and normal respiratory effort Lungs: clear to auscultation and percussion Cardiac Exam: - irregular rate & rhythm, no murmurs gallops or rubs - normal S1, normal S2 Pulses: 2(+) throughout Abdomen: abdomen soft, non-tender, no abnormal masses and no hepatosplenomegaly Musculoskeletal: no gait disturbance, no joint inflammation, no deforming art hritis Extremities: no edema and no cyanosis Neuro: grossly normal exam Results & Data ([facility]) Vital Signs (Past 12 Hours) Vital Signs Temp Pulse Pulse Resp BP Pulse Ox 06/23/21 08:00 79 06/23/21 07:45 36.8 C 66 16 101/59 L 96 06/23/21 03:06 36.4 C L 65 16 102/69 96 06/23/21 00:51 61 06/22/21 23:16 36.9 C 63 14 97/66 L 95 Laboratory Results Laboratory Results - last 24 hr 06/23/21 06/23/21 06:51 07:37 APTT 83.3 H* PTT Ratio 3.0 Sodium 138 Potassium 4.2 Chloride 107 Carbon Dioxide 25 Anion Gap 6 BUN 18 Creatinine 1.16 Est Cr Clr Drug Dosing 35.2 Est GFR ( Amer) 53.7 Est GFR (Non-Af Amer) 46.3 BUN/Creatinine Ratio 15.5 Glucose 83 Calcium 8.7 Medications Administered Current Inpatient Medications Acetaminophen (Acetaminophen 325 Mg Tab) 650 mg PO Q4H PRN PRN Reason: Pain or Fever Stop: 07/19/21 14:42 Last Admin: 06/22/21 20:00 Dose: 650 mg Documented by: Amiodarone HCl (Amiodarone 200 Mg Tab) 200 mg PO BIDM [facility] Stop: 07/23/21 16:59 Apixaban (Apixaban 5 Mg Tablet) 5 mg PO BID KALIE Stop: 07/23/21 08:59 Last Admin: 06/23/21 09:13 Dose: 5 mg Documented by: Furosemide (Furosemide 20 Mg Tab) 20 mg PO BID17 KALIE Stop: 07/21/21 16:59 Last Admin: 06/23/21 07:59 Dose: 20 mg Documented by: Lamotrigine (Lamotrigine 100 Mg Tab) 150 mg PO BID [facility] Stop: 07/19/21 20:59 Last Admin: 06/23/21 07:59 Dose: 150 mg Documented by: Lisinopril (Lisinopril 5 Mg Tab) 5 mg PO QPM KALIE Stop: 07/20/21 20:59 Last Admin: 06/22/21 20:01 Dose: 5 mg Documented by: Metoprolol Tartrate (Metoprolol Tartrate 1 Mg/Ml Vial) 2.5 mg IV Q6 PRN; Protocol PRN Reason: Tachycardia HR>110 Stop: 07/19/21 17:59 Metoprolol Tartrate (Metoprolol Tartrate 25 Mg Tab) 12.5 mg PO BID KALIE Stop: 07/21/21 20:59 Last Admin: 06/23/21 08:01 Dose: 12.5 mg Documented by: Potassium Chloride (Potassium Chloride Crtab 20 Meq Tabcr) 20 meq PO DAILY KALIE Stop: 07/22/21 08:59 Last Admin: 06/23/21 08:00 Dose: 20 meq Documented by:
[2021-06-23] MEDS ORDERED: AMIODARONE 200 MG TAB PO SCH (17:00)
--- NOTE | 2021-06-23 21:45 | Electrocardiogram Report ---
Test Reason : Blood Pressure : / mmHG Vent. Rate : 075 BPM Atrial Rate : 075 BPM P-R Int : 182 ms QRS Dur : 078 ms QT Int : 414 ms P-R-T Axes : 054 056 -13 degrees QTc Int : 462 ms Normal sinus rhythm Possible Left atrial enlargement Nonspecific ST and T wave abnormality Abnormal ECG When compared with ECG of 21-JUN-2021 04:32, Sinus rhythm has replaced Atrial fibrillation Nonspecific T wave abnormality has replaced inverted T waves in Anterolateral leads Confirmed by Louis Kapadia ([id number]) on 06/23/2021 9:45:28 PM Referred By: Saeid Pena Confirmed By:Louis Kapadia
== END 2021-06-23 11:58 | disposition home or self-care (01) | DRG 308 ==
LOC: ED 10:28 → SUATTDRO 13:19 → 2S 13:19